=== PATIENT | male | born 2000 | race Caucasian/White ===

== ENCOUNTER 2019-09-16 12:44 | Emergency (ER) | payer MEDICAID ==
[2019-09-16 12:49] VITALS: BP 141/81
--- NOTE | 2019-09-16 13:02 | ER Document Report ---
HPI - HPI Time Seen by Provider: 09/16/19 12:58 Pain Level: 5 Context: Patient is a 18-year-old male who presents the emergency department with a chief complaint of an abscess behind his left ear. Patient states that he noticed the abscess about 5 days ago. He denies any fevers, body aches, or chills. - CONSTITUTIONAL Constitutional: DENIES: Fever, Chills - EENT EENT: REPORTS: Ear Pain - left abscess. DENIES: Nasal Drainage-Clear, Nasal Drainage-Purulent, Congestion, Eye problems - NEURO Neurology: DENIES: Headache, Weakness - RESPIRATORY Respiratory: DENIES: Trouble Breathing, Coughing - GASTROINTESTINAL Gastrointestinal: DENIES: Abdominal Pain - MUSCULOSKELETAL Musculoskeletal: DENIES: Extremity pain, Back Pain, Neck Pain - DERM Skin Color: Normal Past Medical History - Social History Smoking Status: Current Every Day Smoker Chew tobacco use (# tins/day): No Frequency of alcohol use: Occasional Drug Abuse: Marijuana Family History: Reviewed & Not Pertinent Patient has suicidal ideation: No Patient has homicidal ideation: No Vertical Provider Document - CONSTITUTIONAL Agree With Documented VS: Yes Exam Limitations: No Limitations General Appearance: Cachetic - INFECTION CONTROL TRAVEL OUTSIDE OF THE [place] IN LAST 30 DAYS: No - HEENT HEENT: Atraumatic, Normocephalic, PERRLA Notes: abcess noted behind ear - NECK Neck: Normal Inspection - RESPIRATORY Respiratory: Breath Sounds Normal, No Respiratory Distress - CARDIOVASCULAR Cardiovascular: Regular Rate, Regular Rhythm Pulses: Normal: Radial - MUSCULOSKELETAL/EXTREMETIES Musculoskeletal/Extremeties: FROM - DERM Integumentary: Warm, Dry, No Rash, Abscess - behind left ear Course - Re-evaluation Re-evalutation: 09/16/19 14:15 Differential diagnosis includes but normal limited to: abscess, dermoid cyst, sebaceous cyst, furnucle, or others. Based on patient's physical exam and history, this is an abscess. It was drained in the ER. There is no surrounding cellulitis. I do not believe the patient has underlying necrotizing fasciitis. Based on patient's physical exam and these factors, they will be treated with antibiotics. Packing was placed to the abscess site. Follow-up precautions were given. Verbal discharge instructions were given to the patient. They verbalized understanding. They are stable for discharge. - Vital Signs Vital signs: Temp Pulse Resp BP Pulse Ox 98.1 F 80 16 141/81 H 98 09/16/19 12:48 09/16/19 12:48 09/16/19 12:48 09/16/19 12:48 09/16/19 12:48 Procedures - Incision and Drainage Posterior left ear Type: Simple Anesthetic type: 1% Lidocaine mL's of anesthetic: 3 Blade size: 11 I&D procedure: Betadine prep applied, Shurclens applied, Iodoform packing placed, Sterile dressing applied Incision Method: Incision made by scalpel Amount/type of drainage: 8 mls/purulent and blood Discharge - Discharge Clinical Impression: Abscess of external ear, left Condition: Stable Disposition: HOME, SELF-CARE Instructions: Trimethoprim-Sulfa ([facility]) Additional Instructions: You were seen for an abscess that required drainage. Take all your antibiotics. Even if you start to feel better, make sure you finish them. Return in 2 days to have the packing removed. Please return if you develop fever, vomiting, the pain at the site worsens, you notice spreading redness from the area, or you have any other symptoms that are concerning to you. Prescriptions: Sulfamethoxazole/Trimethoprim [Bactrim Ds Tablet] 1 each PO BID 7 Days #14 tablet Referrals: [facility] [Provider Group] - Follow up as needed [facility] [Provider Group] - Follow up as needed
[2019-09-16] MEDS ORDERED: LIDOCAINE 1% INJ-PF (10 MG/ML) 30 ML SDV INJ ONE (13:04)
== END 2019-09-16 14:12 | disposition home or self-care (01) ==
LOC: ER 12:44
DX: H60.02 Abscess of left external ear (principal); F17.200 Nicotine dependence, unspecified, uncomplicated
CPT/HCPCS: 87070; 87077; 87186; 87205; 99283

== ENCOUNTER 2019-09-18 14:45 | Emergency (ER) | payer MEDICAID ==
--- NOTE | 2019-09-18 15:02 | ER Document Report ---
HPI - HPI Time Seen by Provider: 09/18/19 15:00 Context: Patient is a 18-year-old male who presents the emergency department to have his abscess site checked and to have his packing removed. Patient states that he feels much better. He is continue to take his antibiotics. - CONSTITUTIONAL Constitutional: DENIES: Fever, Chills - NEURO Neurology: DENIES: Headache, Weakness - DERM Skin Color: Normal Notes: drained abcess site to left posterior ear. Past Medical History - General Information source: Patient - Social History Smoking Status: Current Every Day Smoker Family History: Reviewed & Not Pertinent Vertical Provider Document - CONSTITUTIONAL Agree With Documented VS: Yes Exam Limitations: No Limitations General Appearance: No Apparent Distress - INFECTION CONTROL TRAVEL OUTSIDE OF THE [place] IN LAST 30 DAYS: No - HEENT HEENT: Atraumatic, Normocephalic, PERRLA - RESPIRATORY Respiratory: No Respiratory Distress - CARDIOVASCULAR Cardiovascular: Regular Rate - NEURO Level of Consciousness: Awake, Alert, Appropriate - DERM Integumentary: Warm, Dry, No Rash, Abscess - drained with packing in it; no erythema noted. Course - Re-evaluation Re-evalutation: 09/18/19 15:01 Packing was removed by myself. Patient tolerated this well. No signs of cellulitis noted. I advised the patient to continue taking his antibiotics. He is in agreement with this plan. Follow-up precautions were given. Verbal discharge instructions were given to the patient. They verbalized understanding. They are stable for discharge. Discharge - Discharge Clinical Impression: Abscess re-check Condition: Stable Disposition: HOME, SELF-CARE Additional Instructions: You are seen today in the emergency department for an abscess recheck. Please continue your antibiotics, even if you feel better. Please keep the area clean and dry. You can apply triple antibiotic ointment twice a day to the area. Follow-up with 1 of the clinics below. Referrals: [facility] [Provider Group] - Follow up as needed [facility] [Provider Group] - Follow up as needed
[2019-09-18 15:07] VITALS: BP 121/63
== END 2019-09-18 15:14 | disposition home or self-care (01) ==
LOC: ER 14:45
DX: H66.42 Suppurative otitis media, unspecified, left ear (principal); F17.200 Nicotine dependence, unspecified, uncomplicated
CPT/HCPCS: 99282